=== PATIENT | female | born 1965 | race Caucasian/White ===

== ENCOUNTER 2018-04-13 20:14 | Emergency (ER) | payer BC, OTHER, SELFPAY ==
[2018-04-13] MEDS ORDERED: HYDROcodone/Acetaminophen 10/325 mg Tablet ONE (20:37)
== END 2018-04-13 20:46 | disposition home or self-care (01) ==
LOC: BURERS 20:14
DX: M46.1 Sacroiliitis, not elsewhere classified (principal); X50.1XXA Overexertion from prolonged static or awkward postures, initial encounter
CPT/HCPCS: 99283

== ENCOUNTER 2019-04-03 05:22 | Emergency (ER) | payer BC, SELFPAY ==
[2019-04-03] MEDS ORDERED: Ketorolac Tromethamine 60 MG/2 ML VIAL ONE (05:47)
[2019-04-03] MEDS ORDERED: traMADol HCl 50 MG TAB ONE (06:08)
[2019-04-03] MEDS ORDERED: Cyclobenzaprine 10 MG TAB ONE (06:08)
[2019-04-03] MEDS ORDERED: HYDROcodone/Acetaminophen 5/325 mg Tablet ONE (06:17)
--- NOTE | 2019-04-03 07:58 | RAD ---
LUMBAR SPINE 3 VIEWS: DATE: 04/03/2019. FINDINGS: No definite fracture was seen. I understand the line over the left transverse process of L3 was ques tioned. I believe this finding is more likely due to overlying gas in the bowel that is reflecting s hadows on the bone, than an actual break of the process. If further pursuit of the finding was neede d, then an elective CT would solve the question. There is no disc space narrowing. No bony anomalie s are seen. The SI joints are symmetrical. Some calcification is seen in the distal aorta. A round ed calcification just below the left transverse process of L4 is quite smooth, so is more likely a ph lebolith than a ureteral calculus. IMPRESSION: No definite acute findings. See comments above. POS: HERM[facility]
== END 2019-04-03 06:23 | disposition home or self-care (01) ==
LOC: BURERS 05:22
DX: M54.5 Low back pain (principal); F17.210 Nicotine dependence, cigarettes, uncomplicated
CPT/HCPCS: 72100; 96372; J1885

== ENCOUNTER 2023-02-07 13:18 | Emergency (ER) | payer OTHER, SELFPAY ==
[2023-02-07] MEDS ORDERED: Aspirin Chewable 81 MG TAB ONE (13:45)
[2023-02-07] MEDS ORDERED: Ketorolac Tromethamine 30 MG/ML VIAL ONE (13:45)
[2023-02-07 13:51] LABS: #Lymphocytes 1.2 thou/uL (1.20-3.40); #Monocytes 0.4 thou/uL (0.11-0.59); #Neutrophils 3.1 thou/uL (1.40-6.50); %Basophils 0.9 % (0.0-1.0); %Lymphocytes 26.1 % (21.0-51.0); %Monocytes 7.6 % (0.0-10.0); %Neutrophils 65.4 % (42.0-75.0); Hematocrit 37.3 % (36.0-47.0); Hemoglobin 12.2 g/dL (12.0-16.0); Mean Corpuscular HGB CONC 32.7 g/dL (32.0-36.0); Mean Corpuscular Hemoglobin 30.6 pg (27.0-31.0); Mean Corpuscular Volume 93.5 fl (78.0-98.0); Platelet Count 190 10x3/uL (130-400); RBC Distribution Width 13.9 % (11.5-14.5); Red Blood Cell (RBC) Count 3.99 mill/uL (4.20-5.40); White Blood Cell (WBC) Count 4.7 10x3/uL (4.8-10.8)
[2023-02-07 14:01] LABS: Troponin I Less than 0.010 ng/mL (< 0.028)
[2023-02-07 14:31] LABS: ALT (SGPT) 9 U/L (8-55); AST (SGOT) 12 U/L (5-34); Albumin 3.7 g/dL (3.5-5.0); Alkaline Phosphatase 79 U/L (40-110); Anion Gap 14 mmol/L (10-20); BUN (Urea Nitrogen) 6 mg/dL (9.8-20.1); Bilirubin, Total 0.4 mg/dL (0.2-1.2); Calc. Creatinine Clearance 0 mL/min (70-130); Calcium 8.2 mg/dL (7.8-10.44); Carbon Dioxide 22 mmol/L (22-29); Chloride 106 mmol/L (98-107); Estimated GFR 89; Globulin 2.3 g/dL (2.4-3.5); Glucose 97 mg/dL (70-105); Potassium 3.5 mmol/L (3.5-5.1); Sodium 138 mmol/L (136-145)
== END 2023-02-07 14:44 | disposition home or self-care (01) ==
LOC: BURERS 13:18
DX: R07.89 Other chest pain (principal); F17.210 Nicotine dependence, cigarettes, uncomplicated; X50.0XXA Overexertion from strenuous movement or load, initial encounter; Y93.F2 Activity, caregiving, lifting; Y92.69 Other specified industrial and construction area as the place of occurrence of the external cause
CPT/HCPCS: 71046; 80053; 83880; 84484; 85025; 93005; 94760; 96374; J1885